=== PATIENT | male | born 1945 | race Caucasian/White ===

== ENCOUNTER → 2017-07-31 | Outpatient (CLI) | payer MEDICARE | LOC: M.MRI 07-23 13:02 | DX: I65.23 Occlusion and stenosis of bilateral carotid arteries (principal); I67.82 Cerebral ischemia; G43.C0 Periodic headache syndromes in child or adult, not intractable; I70.8 Atherosclerosis of other arteries; H53.9 Unspecified visual disturbance ==

== ENCOUNTER → 2019-01-07 | Outpatient (CLI) | payer MEDICARE | LOC: M.RAD 09:51 | DX: M19.041 Primary osteoarthritis, right hand (principal); M19.042 Primary osteoarthritis, left hand ==

== ENCOUNTER 2020-10-16 14:55 | Emergency (ER) | payer OTHER ==
[~2020-10-16] VITALS: Ht 172.7 cm; Wt 79.4 kg
[2020-10-16] MEDS ORDERED: TOPROL XL25 MG (15:11)
[2020-10-16] MEDS ORDERED: LISINOPRIL10 MG PO (15:11)
[2020-10-16] MEDS ORDERED: ZYRTEC10 M5 PO (15:11)
[2020-10-16 16:59] VITALS: BP 114/70
== END 2020-10-16 16:59 | disposition home or self-care (01) ==
LOC: M.ERS 14:55
DX: S43.004A Unspecified dislocation of right shoulder joint, initial encounter (principal); S90.512A Abrasion, left ankle, initial encounter; I10 Essential (primary) hypertension; Z79.899 Other long term (current) drug therapy; V19.88XA Pedal cyclist (driver) (passenger) injured in other specified transport accidents, initial encounter; Y93.55 Activity, bike riding; Y92.413 State road as the place of occurrence of the external cause; Y99.9 Unspecified external cause status

== ENCOUNTER → 2021-01-30 | Outpatient (CLI) | payer OTHER ==
[~2021-01-30] MED LIST: LISINOPRIL10 MG PO; TOPROL XL25 MG; ZYRTEC10 M5 PO
== END ==
LOC: M.MRI 14:18
PROVIDERS: ATTEND Internal Medicine
DX: S43.431A Superior glenoid labrum lesion of right shoulder, initial encounter (principal); S43.004A Unspecified dislocation of right shoulder joint, initial encounter; M19.011 Primary osteoarthritis, right shoulder; M75.101 Unspecified rotator cuff tear or rupture of right shoulder, not specified as traumatic; G89.29 Other chronic pain; X58.XXXA Exposure to other specified factors, initial encounter; Y93.89 Activity, other specified; Y92.89 Other specified places as the place of occurrence of the external cause; Y99.8 Other external cause status